=== PATIENT | female | born 1985 ===

== ENCOUNTER 2017-12-16 03:10 | Emergency (ER) | payer SELFPAY ==
--- NOTE | 2017-12-16 04:49 | CT ---
Date of service: 12/16/2017 PROCEDURE: CT HEAD WITHOUT CONTRAST. HISTORY: fall with head trauma COMPARISON: None available. TECHNIQUE: Axial computed tomography images were obtained through the head/brain without intravenous contrast. Radiation dose: Total exam DLP = 831.01 mGy-cm. This CT exam was performed using one or more of the following dose reduction techniques: Automated exposure control, adjustment of the mA and/or kV according to patient size, and/or use of iterative reconstruction technique. FINDINGS: HEMORRHAGE: No intracranial hemorrhage. BRAIN: Fernandes-white matter differentiation is preserved. There is no mass, mass effect or abnormal extra-axial fluid collection. There is no territorial infarction. The midline sagittal structures are normal. VENTRICLES: The ventricles are normal in size, shape and configuration. CALVARIUM: There is no calvarial fracture. There is a large right parietal scalp hematoma. PARANASAL SINUSES: There is mild mucosal thickening in the visualized right maxillary sinus. The remaining included paranasal sinuses are clear. MASTOID AIR CELLS: Unremarkable as visualized. No inflammatory changes. OTHER FINDINGS: None. IMPRESSION: No acute intracranial abnormality. Large right parietal scalp hematoma.
[2017-12-16] MEDS ORDERED: Povidone Iodine Oint 10% Foilpak UD ONE (05:06)
[2017-12-16 05:16] LABS: BASO % 0.8 % (0.0-2.0); EOS % 0.4 % (0.0-4.0); LYMPH # 1.1 K/uL (1.0-4.3); LYMPH % 18.5 % (20.0-40.0); MEAN CELL VOLUME 87.3 fl (81.0-99.0); MEAN CORPUSCULAR HEMOGLOBIN 29.4 pg (27.0-31.0); MEAN CORPUSCULAR HGB CONC 33.7 g/dL (33.0-37.0); MEAN PLATELET VOLUME 8.1 fl (7.2-11.7); MONO # 0.2 K/uL (0.0-0.8); MONO % 3.6 % (0.0-10.0); NEUT # 4.5 K/uL (1.8-7.0); NEUT % 76.7 % (50.0-75.0); RBC 4.42 Mil/uL (3.80-5.20); RED CELL DISTRIBUTION WIDTH 12.4 % (11.5-14.5); WHITE BLOOD COUNT 5.9 K/uL (4.8-10.8)
[2017-12-16] MEDS ORDERED: Lidocaine 1% w Epi 1:100,000 Inj ONE (05:19)
[2017-12-16 05:39] LABS: ALB/GLOB RATIO 1.2 (1.0-2.1); ALBUMIN 4.3 g/dL (3.5-5.0); ALT/SGPT 35 U/L (9-52); AST/SGOT 24 U/L (14-36); BLOOD UREA NITROGEN 14 mg/dl (7-17); CALCIUM 8.7 mg/dL (8.4-10.2); GFR NON-AFRICAN AMERICAN > 60
--- NOTE | 2017-12-16 05:51 | ED PDOC ---
Addendum entered and electronically signed by Jessica Lucero PA 12/18/17 21:15: ED Course And Treatment - Laboratory Results Result Diagrams: 12/16/17 05:05 12/16/17 05:05 O2 Sat by Pulse Oximetry: 98 Original Note: HPI: Trauma/Fall - HPI Chief Complaint (Provider): Trauma History Per: Patient History/Exam Limitations: no limitations Onset/Duration Of Symptoms: Hrs Injury Occurred (Timing): Just Before Arrival Additional Complaint(s): 32 y/o female with a PMHx of polycystic kidney disease present s/p fall due to being intoxicated. History provided by brother and boyfriend as the patient is obtunded. They state she had been drinking all night. Brother states as he went to get the car, the patient was being walked to the car by friends when they lost their footing and both fell. Patient sustained right sided head trauma stating she "hit her head hard". PMD: Unknown <Jessica Lucero - Last Filed: 12/16/17 07:24> <Wang Wills - Last Filed: 12/16/17 07:31> - HPI Time Seen by Provider: 12/16/17 03:23 Chief Complaint (Nursing): Trauma Past Medical History Reviewed: Historical Data, Nursing Documentation, Vital Signs Vital Signs: Last Vital Signs Temp 97.9 F 12/16/17 04:14 Pulse 87 12/16/17 03:18 Resp 17 12/16/17 03:18 BP 133/79 12/16/17 03:18 Pulse Ox 99 12/16/17 03:18 - Medical History PMH: Chronic Kidney Disease (Polycystic kidneys) - Surgical History Surgical History: No Surg Hx - Family History Family History: States: Other Other Family History: Polycystic kidney disease - Social History Current smoker - smoking cessation education provided: No Alcohol: Social Drugs: Denies <Jessica Lucero - Last Filed: 12/16/17 07:24> Vital Signs: Last Vital Signs Temp 97.9 F 12/16/17 04:14 Pulse 83 12/16/17 06:45 Resp 16 12/16/17 06:45 BP 104/59 L 12/16/17 06:45 Pulse Ox 99 12/16/17 07:24 <Wang Wills - Last Filed: 12/16/17 07:31> - Allergies Allergies/Adverse Reactions: Allergies Allergy/AdvReac Type Severity Reaction Status Date / Time Unobtainable Allergy Verified 12/16/17 03:24 Review of Systems Review Of Systems: ROS cannot be obtained secondary to pt's inabilty to answer questions. <Jessica Lucero - Last Filed: 12/16/17 07:24> Physical Exam - Reviewed Nursing Documentation Reviewed: Yes Vital Signs Reviewed: Yes - Physical Exam Appears: Positive for: No Acute Distress Head Exam: Negative for: NORMAL INSPECTION (3 cm laceration to the right superior aspect of the scalp with minimal bleeding. ) Back: Positive for: Other (Mild abrasion to the posterior/lateral aspect of the right side of the back. No bleeding) Extremity: Positive for: Normal ROM (Lower extremities unremarkable. Normal ROM), Other (Mild abrasion to the posterior/lateral aspect of the right arm. No bleeding). Negative for: Deformity Neurologic/Psych: Positive for: Other (Obtunded). Negative for: Alert, Oriented <Jessica Lucero - Last Filed: 12/16/17 07:24> - Laboratory Results Result Diagrams: 12/16/17 05:05 12/16/17 05:05 - ECG O2 Sat by Pulse Oximetry: 99 (RA) Pulse Ox Interpretation: Normal <Jessica Lucero - Last Filed: 12/16/17 07:24> - Laboratory Results Result Diagrams: 12/16/17 05:05 12/16/17 05:05 <Wang Wills - Last Filed: 12/16/17 07:31> Medical Decision Making Medical Decision Making: Time: 0505 Plan: -- CT Head w/o Contrast -- Alcohol Serum -- CMP -- ED Urine -- CBC with Differentials 5:15am: Serum ETOH: 342 CT head w/o contrast: no acute intracranial abnormality. Large R parietal scalp hematoma. CBC, CMP: unremarkable Pt remains obtunded but snoring with chest rise and fall noted. 6am: pt remains obtunded/sleeping. Patient signed off to Dr. Wills pending sobriety. Scribe Attestation: Documented by Linnea Delacruz, acting as a scribe for Jessica Lucero PA-C. Provider Scribe Attestation: All medical record entries made by the Scribe were at my direction and personally dictated by me. I have reviewed the chart and agree that the record accurately reflects my personal performance of the history, physical exam, medical decision making, and the department course for this patient. I have also personally directed, reviewed, and agree with the discharge instructions and disposition. <Jessica Lucero - Last Filed: 12/16/17 07:24> Medical Decision Making: Patient endorsed to Dr. Murrieta pending clinical sobriety. <Wang Wills - Last Filed: 12/16/17 07:31> Procedures - Time-Out Type of Procedure: scalp staple Site of Procedure: Right scalp Correct Patient (with visual ID + MR# on ID Band): Yes Correct Procedure: Yes PA/Tech: Jessica Lucero - Chest Tube Progress: Right scalp laceration cleaned with betadine and saline, given Lidocaine with epi injection for anesthesia and given 3 magda with improvement in bleeding. <Jessica Lucero - Last Filed: 12/16/17 07:24> Disposition <Jessica Lucero - Last Filed: 12/16/17 07:24> - Disposition Disposition: Transfer of Care Disposition Time: 07:00 Patient Signed Over To: Silvestre Murrieta Handoff Comments: pending sobriety and re-eval <Wang Wills - Last Filed: 12/16/17 07:31> - Clinical Impression Clinical Impression: Head injury - Disposition Condition: STABLE Forms: [employer] (Estonian)
[2017-12-16 07:23] VITALS: RESP 16
--- NOTE | 2017-12-16 09:16 | ED PDOC ---
- Laboratory Results Result Diagrams: 12/16/17 05:05 12/16/17 05:05 - ECG O2 Sat by Pulse Oximetry: 99 (RA) - Progress Re-evaluation Time: 09:14 Condition: Improved (Awake alert oriented x 3 No focal neuro deficits) Disposition - Clinical Impression Clinical Impression: Head injury - POA Present On Arrival: None - Disposition Disposition: Routine/Home Disposition Time: 09:15 Condition: STABLE Instructions: Closed Head Injury (DC), Alcohol Abuse and Alcoholism (DC) Forms: [employer] (Latvian)
[2017-12-16 09:48] VITALS: PULSE 80; TEMP 98; O2SAT 98
[2017-12-16 09:56] VITALS: BP 107/62
== END 2017-12-16 09:25 | disposition home or self-care (01) ==
LOC: H.ER 03:10
DX: S09.90XA Unspecified injury of head, initial encounter (principal); S00.03XA Contusion of scalp, initial encounter; N18.9 Chronic kidney disease, unspecified; Y90.8 Blood alcohol level of 240 mg/100 ml or more; W18.39XA Other fall on same level, initial encounter
CPT/HCPCS: 70450; 80053; 82948; 85025; 99285; G0480